=== PATIENT | male | born 1940 | race Caucasian/White ===

== ENCOUNTER 2021-07-01 15:06 | Emergency (ER) | payer MEDICARE ==
[~2021-07-01] VITALS: Ht 182.9 cm; Wt 84.1 kg
--- NOTE | 2021-07-01 15:57 | NUR ---
PT BIB EMS FROM [facility] AFTER PT HAD POSITIVE QUANTATIVE BLOOD TEST FOR TB. PT DOES NOT HAVE ANY SX. 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 PERSON OF CONTACT INFO DANNY AT [phone]. PT RESTING ON GURNEY. NADN. MONITORS APPLIED. VSS. WARM BLANKET PROVIDED. CALL LIGHT IN REACH. ERP DR. BAKER AT BEDSIDE FOR EVAL.
[2021-07-01 17:24] VITALS: BP 103/65
--- NOTE | 2021-07-01 17:24 | NUR ---
PT CHART REVIEWED AND PLACED FOR RECHECK.
--- NOTE | 2021-07-01 17:25 | NUR ---
PT RESTING ON GURNEY. NADN. KLEIN.
== END 2021-07-01 19:43 ==
LOC: ED 19:38
DX: A15.9 Respiratory tuberculosis unspecified (principal); I12.0 Hypertensive chronic kidney disease with stage 5 chronic kidney disease or end stage renal disease; N18.5 Chronic kidney disease, stage 5; E11.22 Type 2 diabetes mellitus with diabetic chronic kidney disease; I25.10 Atherosclerotic heart disease of native coronary artery without angina pectoris
CPT/HCPCS: 71045; 99283